=== PATIENT | male | born 1935 | race Caucasian/White ===

== ENCOUNTER 2024-10-03 10:02 | Inpatient (IN) ==
[2024-10-03] MEDS ORDERED: IOPAMIDOL 100 ML BOTTLE IV ONE (10:03)
[2024-10-03 11:00] LABS: Basophils # (Auto) 0.04 K/mcL (0.00-0.30); Basophils % (Auto) 0.3 % (0.0-2.0); Eosinophils # (Auto) 0.16 K/mcL (0.00-0.70); Hematocrit 38.6 % (40.1-51.0); Hemoglobin 12.9 g/dL (13.7-17.5); Lymphocytes % (Auto) 8.3 % (15.5-49.0); Mean Cell Volume 97.5 fL (80.0-100.0); Mean Corpuscular HGB Conc 33.4 g/dL (31.0-36.0); Mean Platelet Volume 11.7 fL (8.8-12.5); Monocytes % (Auto) 6.4 % (1.0-12.0); Neutrophils % (Auto) 83.6 % (38.0-78.0); Platelet Count 256 K/mcL (140-440); RBC 3.96 M/mcL (4.63-6.08); Red Cell Distribution Width 12.7 % (11.5-14.5); WBC 15.6 K/mcL (4.5-11.0)
[2024-10-03] MEDS: VANCOMYCIN 1,500 MG in DEXTROSE 5% IN WATER 500 ML IV ONE (11:20)
[2024-10-03 11:23] LABS: ALT/SGPT 17 U/L (<40); AST/SGOT 23 U/L (<40); Albumin 3.6 gm/dL (3.2-5.2); Albumin/Globulin Ratio 0.9 (1.0-2.3); Alkaline Phosphatase 131 U/L (39-117); Bilirubin,Total 0.4 mg/dL (0.1-1.0); Blood Urea Nitrogen 41 mg/dL (8-23); Calcium 10.7 mg/dL (8.6-10.4); Carbon Dioxide 22 mmol/L (22-30); Chloride 104 mmol/L (96-108); Globulin 3.9 gm/dL (2.2-3.7); Glomerular Filtration Rate 45; Glucose 131 mg/dL (70-105); Potassium 3.7 mmol/L (3.3-5.1); Sodium 141 mmol/L (133-145)
[2024-10-03 12:37] LABS: Erythrocyte Sedimentation Rate 42 mm/hr (0-20)
[2024-10-03] MEDS ORDERED: VANCOMYCIN PER PHARMACY IV SCH (17:10)
[2024-10-03] MEDS: SODIUM CHLORIDE 154 MEQ in WATER FOR INJECTION,STERILE 961.5 ML IV ONE (18:11)
[2024-10-03] MEDS: 0.9 % SODIUM CHLORIDE 1,000 ML IV SCH (18:36)
[2024-10-03] MEDS: 0.9 % SODIUM CHLORIDE 1,000 ML IV ONE (18:36)
[2024-10-03] MEDS: cefTRIAXone 2 GM in DEXTROSE 5% IN WATER 50 ML IV SCH (18:57)
[2024-10-03] MEDS: SODIUM CHLORIDE 154 MEQ in WATER FOR INJECTION,STERILE 961.5 ML IV SCH (18:57)
[2024-10-03] MEDS: 0.9 % SODIUM CHLORIDE 10 ML SYRINGE IV SCH (20:48)
[2024-10-03] MEDS: metroNIDAZOLE 500 MG/100 ML BAG IV SCH (20:49)
[2024-10-03] MEDS: SENNOSIDES 1 TABLET PO SCH (20:52)
[2024-10-04 06:25] LABS: Basophils # (Auto) 0.04 K/mcL (0.00-0.30); Basophils % (Auto) 0.4 % (0.0-2.0); Eosinophils # (Auto) 0.29 K/mcL (0.00-0.70); Eosinophils % (Auto) 2.7 % (0.0-7.0); Hematocrit 34.2 % (40.1-51.0); Hemoglobin 11.2 g/dL (13.7-17.5); Lymphocytes # (Auto) 1.21 K/mcL (1.50-4.80); Lymphocytes % (Auto) 11.2 % (15.5-49.0); Mean Cell Volume 97.7 fL (80.0-100.0); Mean Corpuscular HGB Conc 32.7 g/dL (31.0-36.0); Mean Platelet Volume 11.1 fL (8.8-12.5); Monocytes # (Auto) 0.75 K/mcL (0.10-0.90); Monocytes % (Auto) 6.9 % (1.0-12.0); Neutrophils % (Auto) 78.1 % (38.0-78.0); Platelet Count 262 K/mcL (140-440); Red Cell Distribution Width 12.6 % (11.5-14.5); WBC 10.8 K/mcL (4.5-11.0)
[2024-10-04 07:21] LABS: ALT/SGPT 13 U/L (<40); AST/SGOT 16 U/L (<40); Alkaline Phosphatase 102 U/L (39-117); Bilirubin,Direct < 0.2 mg/dL (0-0.3); Bilirubin,Total 0.2 mg/dL (0.1-1.0); Blood Urea Nitrogen 30 mg/dL (8-23); Carbon Dioxide 22 mmol/L (22-30); Chloride 108 mmol/L (96-108); Glomerular Filtration Rate 67; Glucose 118 mg/dL (70-105); Lactate Dehydrogenase 117 U/L (135-225); Phosphorous 3.1 mg/dL (2.5-4.5); Potassium 3.1 mmol/L (3.3-5.1); Sodium 140 mmol/L (133-145); Triglycerides 77 mg/dL (<150); Uric Acid 7.5 mg/dL (2.5-8.0)
[2024-10-04] MEDS: VANCOMYCIN 1,500 MG in DEXTROSE 5% IN WATER 500 ML IV SCH (09:55)
[2024-10-04] MEDS: POTASSIUM CHLORIDE 10 MEQ/100 ML BAG IV SCH (09:56)
[2024-10-04] MEDS ORDERED: fentaNYL 100 MCG/2 ML VIAL ONE (11:31)
[2024-10-04] MEDS ORDERED: PROPOFOL 200 MG/20 ML VIAL IV ONE (11:31)
[2024-10-04] MEDS ORDERED: LIDOCAINE 2% PF 5 ML VIAL ONE (11:31)
[2024-10-04] MEDS ORDERED: ONDANSETRON 4 MG/2 ML VIAL ONE (11:31)
[2024-10-04] MEDS ORDERED: GLYCOPYRROLATE 0.2 MG/ML VIAL IV ONE ×2 (11:31→12:06)
[2024-10-04] MEDS ORDERED: DEXAMETHASONE 10 MG/ML VIAL ONE (11:31)
[2024-10-04] MEDS ORDERED: KETOROLAC 30 MG/ML VIAL ONE (11:35)
[2024-10-04] MEDS ORDERED: KETAMINE 50 MG/ML Syringe IV ONE (11:48)
[2024-10-04] MEDS ORDERED: ePHEDrine 50 MG/5 ML SYRINGE (ANEST) IV ONE (12:11)
[2024-10-04] MEDS: BUPIVACAINE 0.5% 50 ML VIAL IJ ONE (12:12)
[2024-10-04] MEDS ORDERED: BENZOCAINE/MENTHOL 1 LOZENGE PO PRN (12:21)
[2024-10-04] MEDS ORDERED: ONDANSETRON 4 MG/2 ML VIAL IV PRN (12:21)
[2024-10-04] MEDS ORDERED: IPRATROPIUM/ALBUTEROL 3 ML AMPUL.NEB NEB PRN (12:21)
[2024-10-04] MEDS ORDERED: NALOXONE HCL 0.4 MG/ML VIAL IV PRN (12:21)
[2024-10-04] MEDS ORDERED: LACTATED RINGERS 250 ML IV PRN (12:21)
[2024-10-04] MEDS ORDERED: fentaNYL 100 MCG/2 ML VIAL IV PRN (12:21)
[2024-10-04] MEDS: VANCOMYCIN 1 GM VIAL TOPICAL SCH (12:31)
[2024-10-04] MEDS: ACETAMINOPHEN 1,000 MG/100 ML BAG IV ONE (12:52)
[2024-10-04] MEDS ORDERED: ENOXAPARIN 40 MG/0.4 ML SYRINGE SQ SCH (21:00)
[2024-10-04] MEDS: ENOXAPARIN 40 MG/0.4 ML SYRINGE SQ SCH (21:24)
[2024-10-04] MEDS: SENNOSIDES 1 TABLET PO SCH (21:25)
[2024-10-05] MEDS: LACTATED RINGERS 1,000 ML IV SCH (02:53)
[2024-10-05 06:06] LABS: Basophils # (Auto) 0.02 K/mcL (0.00-0.30); Basophils % (Auto) 0.2 % (0.0-2.0); Eosinophils # (Auto) 0 K/mcL (0.00-0.70); Eosinophils % (Auto) 0 % (0.0-7.0); Hematocrit 31.8 % (40.1-51.0); Hemoglobin 10.7 g/dL (13.7-17.5); Lymphocytes # (Auto) 0.78 K/mcL (1.50-4.80); Lymphocytes % (Auto) 6.7 % (15.5-49.0); Mean Cell Volume 96.7 fL (80.0-100.0); Mean Corpuscular HGB Conc 33.6 g/dL (31.0-36.0); Mean Platelet Volume 11.2 fL (8.8-12.5); Monocytes # (Auto) 0.63 K/mcL (0.10-0.90); Monocytes % (Auto) 5.4 % (1.0-12.0); Neutrophils % (Auto) 86.8 % (38.0-78.0); Platelet Count 257 K/mcL (140-440); RBC 3.29 M/mcL (4.63-6.08); Red Cell Distribution Width 12.6 % (11.5-14.5); WBC 11.6 K/mcL (4.5-11.0)
[2024-10-05 06:22] LABS: ALT/SGPT 12 U/L (<40); AST/SGOT 12 U/L (<40); Albumin 2.9 gm/dL (3.2-5.2); Alkaline Phosphatase 95 U/L (39-117); Bilirubin,Direct < 0.2 mg/dL (0-0.3); Bilirubin,Total < 0.2 mg/dL (0.1-1.0); Blood Urea Nitrogen 20 mg/dL (8-23); Calcium 8.9 mg/dL (8.6-10.4); Carbon Dioxide 22 mmol/L (22-30); Chloride 110 mmol/L (96-108); Glomerular Filtration Rate 80; Glucose 170 mg/dL (70-105); Lactate Dehydrogenase 118 U/L (135-225); Phosphorous 2.7 mg/dL (2.5-4.5); Potassium 3.8 mmol/L (3.3-5.1); Sodium 141 mmol/L (133-145); Triglycerides 58 mg/dL (<150); Uric Acid 6.4 mg/dL (2.5-8.0)
[2024-10-05] MEDS: LOSARTAN 50 MG TABLET PO SCH (08:20)
[2024-10-05] MEDS: LEVOTHYROXINE 150 MCG TABLET PO SCH (08:20)
[2024-10-05] MEDS: BENZOCAINE/MENTHOL 1 LOZENGE PO PRN (08:20)
[2024-10-05] MEDS: FINASTERIDE 5 MG TABLET PO SCH (08:20)
[2024-10-05] MEDS ORDERED: ENOXAPARIN 40 MG/0.4 ML SYRINGE SQ SCH (09:00)
[2024-10-05] MEDS: TRIAMTERENE/HYDROCHLOROTHIAZID 1 CAP CAPSULE PO SCH (09:24)
[2024-10-05] MEDS: VANCOMYCIN 1,000 MG in 0.9 % SODIUM CHLORIDE 250 ML IV SCH (11:34)
[2024-10-05] MEDS: FUROSEMIDE 20 MG/2 ML VIAL IV SCH (11:34)
[2024-10-05] MEDS: POTASSIUM CHLORIDE 20 MEQ TABLET PO SCH (11:34)
[2024-10-05] MEDS: VANCOMYCIN 1,000 MG in DEXTROSE 5% IN WATER 250 ML IV SCH (12:28)
[2024-10-05] MEDS: POLYETHYLENE GLYCOL 3350 17 GM PACKET PO PRN (19:28)
[2024-10-06] MEDS: ACETAMINOPHEN 325 MG TABLET PO PRN (03:20)
[2024-10-06 06:05] LABS: Basophils # (Auto) 0.05 K/mcL (0.00-0.30); Basophils % (Auto) 0.5 % (0.0-2.0); Eosinophils # (Auto) 0.37 K/mcL (0.00-0.70); Eosinophils % (Auto) 3.8 % (0.0-7.0); Hematocrit 33.4 % (40.1-51.0); Hemoglobin 10.9 g/dL (13.7-17.5); Lymphocytes # (Auto) 1.54 K/mcL (1.50-4.80); Lymphocytes % (Auto) 15.7 % (15.5-49.0); Mean Cell Volume 99.4 fL (80.0-100.0); Mean Corpuscular HGB Conc 32.6 g/dL (31.0-36.0); Mean Platelet Volume 11.1 fL (8.8-12.5); Monocytes # (Auto) 0.74 K/mcL (0.10-0.90); Monocytes % (Auto) 7.5 % (1.0-12.0); Neutrophils % (Auto) 70.7 % (38.0-78.0); Platelet Count 280 K/mcL (140-440); RBC 3.36 M/mcL (4.63-6.08); Red Cell Distribution Width 12.8 % (11.5-14.5); WBC 9.8 K/mcL (4.5-11.0)
[2024-10-06 06:37] LABS: ALT/SGPT 15 U/L (<40); AST/SGOT 22 U/L (<40); Albumin 2.9 gm/dL (3.2-5.2); Alkaline Phosphatase 87 U/L (39-117); Bilirubin,Direct < 0.2 mg/dL (0-0.3); Bilirubin,Total < 0.2 mg/dL (0.1-1.0); Blood Urea Nitrogen 20 mg/dL (8-23); Calcium 8.8 mg/dL (8.6-10.4); Carbon Dioxide 23 mmol/L (22-30); Chloride 112 mmol/L (96-108); Globulin 2.9 gm/dL (2.2-3.7); Glomerular Filtration Rate 84; Glucose 107 mg/dL (70-105); Lactate Dehydrogenase 162 U/L (135-225); Phosphorous 2.3 mg/dL (2.5-4.5); Potassium 3.4 mmol/L (3.3-5.1); Sodium 144 mmol/L (133-145); Triglycerides 75 mg/dL (<150); Uric Acid 6.8 mg/dL (2.5-8.0)
[2024-10-06] MEDS: amLODIPine 5 MG TABLET PO SCH (13:54)
[2024-10-06] MEDS: HYDROcodone/APAP 5/325MG TABLET PO PRN (21:01)
[2024-10-07 06:39] LABS: Basophils # (Auto) 0.07 K/mcL (0.00-0.30); Basophils % (Auto) 0.8 % (0.0-2.0); Eosinophils # (Auto) 0.46 K/mcL (0.00-0.70); Eosinophils % (Auto) 5.3 % (0.0-7.0); Hematocrit 34.9 % (40.1-51.0); Hemoglobin 11.5 g/dL (13.7-17.5); Lymphocytes # (Auto) 1.54 K/mcL (1.50-4.80); Lymphocytes % (Auto) 17.7 % (15.5-49.0); Mean Cell Volume 97.8 fL (80.0-100.0); Mean Platelet Volume 10.9 fL (8.8-12.5); Monocytes # (Auto) 0.54 K/mcL (0.10-0.90); Monocytes % (Auto) 6.2 % (1.0-12.0); Neutrophils % (Auto) 66.9 % (38.0-78.0); Platelet Count 305 K/mcL (140-440); RBC 3.57 M/mcL (4.63-6.08); Red Cell Distribution Width 12.8 % (11.5-14.5); WBC 8.7 K/mcL (4.5-11.0)
[2024-10-07 06:49] LABS: ALT/SGPT 22 U/L (<40); AST/SGOT 38 U/L (<40); Albumin/Globulin Ratio 1.1 (1.0-2.3); Alkaline Phosphatase 90 U/L (39-117); Bilirubin,Direct < 0.2 mg/dL (0-0.3); Bilirubin,Total 0.2 mg/dL (0.1-1.0); Blood Urea Nitrogen 16 mg/dL (8-23); Calcium 8.7 mg/dL (8.6-10.4); Carbon Dioxide 25 mmol/L (22-30); Chloride 110 mmol/L (96-108); Globulin 2.8 gm/dL (2.2-3.7); Glomerular Filtration Rate 84; Glucose 107 mg/dL (70-105); Lactate Dehydrogenase 145 U/L (135-225); Phosphorous 2.5 mg/dL (2.5-4.5); Potassium 3.4 mmol/L (3.3-5.1); Sodium 145 mmol/L (133-145); Triglycerides 86 mg/dL (<150); Uric Acid 6.4 mg/dL (2.5-8.0)
[2024-10-07] MEDS: amLODIPine 5 MG TABLET PO SCH ×2 (08:40→12:20)
[2024-10-07] MEDS ORDERED: ENALAPRILAT 1.25 MG/ML VIAL IV PRN (11:50)
[2024-10-07] MEDS: hydrALAZINE 25 MG TABLET PO SCH (15:06)
[2024-10-07] MEDS: ONDANSETRON 4 MG/2 ML VIAL IV PRN (19:36)
[2024-10-08] MEDS: amLODIPine 10 MG TABLET PO SCH (08:59)
[2024-10-08] MEDS ORDERED: LIDOCAINE 1% 10 ML VIAL SQ ONE (09:56)
[2024-10-08] MEDS: TRIAMTERENE/HYDROCHLOROTHIAZID 1 CAP CAPSULE PO SCH (10:15)
[2024-10-08] MEDS: MELATONIN 3 MG TABLET PO PRN (20:20)
[2024-10-09] MEDS: 0.9 % SODIUM CHLORIDE 10 ML SYRINGE IV PRN (09:59)
[2024-10-09] MEDS: NYSTATIN 500,000 UNITS/5 ML ORAL.SUSP SSP SCH (17:48)
[2024-10-09] MEDS: LACTOBACILLUS 1 CAPSULE PO SCH (21:02)
[2024-10-09 23:58] VITALS: O2SAT 96
[2024-10-10 14:55] VITALS: TEMP 98.1
== END 2024-10-10 17:23 | disposition home or self-care (01) | DRG 853 ==
LOC: ED 10:02 → MEDSUR 16:58
PROVIDERS: ADMIT Internal Medicine; ATTEND Internal Medicine